=== PATIENT | male | born 1970 | race African-American/Black ===

== ENCOUNTER 2024-05-15 04:36 | Emergency (ER) | payer MEDICAID ==
[~2024-05-15] VITALS: Ht 177.8 cm; Wt 81.8 kg
[2024-05-15 04:43] VITALS: TEMP 98.2
[2024-05-15 05:35] LABS: BASOPHILS % (AUTO) 1.6 % (0.0-2.0); HEMATOCRIT 41.3 % (41-53); HEMOGLOBIN 13.7 g/dL (13.5-17.5); LYMPHOCYTES # (AUTO) 1.9 K/uL (1.0-4.8); LYMPHOCYTES % (AUTO) 28.4 % (22.0-44.0); MEAN CORPUSCULAR HEMOGLOBIN 30.9 pg (26.0-34.0); MEAN CORPUSCULAR HGB CONC 33.2 G/dL (31.0-37.0); MEAN CORPUSCULAR VOLUME 93 fL (80-100); MONOCYTES # (AUTO) 0.8 K/uL (0.1-1.0); MONOCYTES % (AUTO) 11.4 % (2.0-9.0); NEUTROPHILS # (AUTO) 3.2 K/uL (1.8-7.7); NEUTROPHILS % (AUTO) 46.6 % (40.0-70.0); PLATELET COUNT (AUTO) 278 K/uL (150-450); RED BLOOD CELL COUNT(AUTO) 4.44 MIL/uL (4.50-5.90); RED CELL DISTRIBUTION WIDTH 13.5 % (11.5-14.5); WHITE BLOOD COUNT (AUTO) 6.8 K/uL (4.5-11.0)
[2024-05-15 05:43] LABS: ANION GAP 6 mmol/L (8-16); CALCIUM, TOTAL 8.6 mg/dL (8.8-10.5); CARBON DIOXIDE 31 mmol/L (22-29); CHLORIDE 104 mmol/L (98-107); CREATININE 1.01 mg/dL (0.60-1.30); GLOMERULAR FILTR. RATE CALC > 60 mL/min (>60); GLUCOSE,RANDOM 86 mg/dL (70-110); POTASSIUM 3.8 mmol/L (3.5-5.1); SODIUM SERUM 141 mmol/L (136-145); UREA NITROGEN, BLOOD 13 mg/dL (7-18)
[2024-05-15 05:46] LABS: PROTHROMBIN TIME 11.5 SEC (9.4-11.6)
[2024-05-15 05:54] LABS: CREATINE KINASE, TOTAL ONLY 850 U/L (39-308); TROPONIN I-HIGH SENSITIVITY 19 ng/L (<76)
[2024-05-15 06:05] LABS: B-TYPE NATRIURETIC PEPTIDE 14 pg/mL (0-100)
[2024-05-15 06:46] VITALS: BP 149/97; PULSE 90; RESP 19; O2SAT 97
[2024-05-15] MEDS ORDERED: AZIT250T9 PO (07:18)
[2024-05-15] MEDS ORDERED: PRED-554 PO (07:18)
== END 2024-05-15 08:00 | disposition home or self-care (01) ==
LOC: EMS 04:39
DX: J40 Bronchitis, not specified as acute or chronic (principal); J44.9 Chronic obstructive pulmonary disease, unspecified
CPT/HCPCS: 71045; 80048; 82550; 83880; 84484; 85025; 85610; 85730; 93005; 99285; 36415-L1; 36415-TC